=== PATIENT | female | born 1995 | race Caucasian/White ===

== ENCOUNTER 2017-02-25 17:50 | Emergency (ER) | payer OTHER ==
[2017-02-25 18:22] VITALS: BP 103/80
--- NOTE | 2017-02-25 18:38 | UC ---
Respiratory Complaint HPI - HPI Summary HPI Summary: pt presents with c/o cough and nasal congestion. Denies fever or chills. Pt states that she has a "brick" on her chest and she is coughing "all the time". Pt is sitting comfortably during exam without coughing and in No respiratory distress. - History of Current Complaint Chief Complaint: UCRespiratory Stated Complaint: UPPER RESPIRATORY Time Seen by Provider: 02/25/17 18:33 Hx Obtained From: Patient Hx Last Menstrual Period: 02/24/16 ?: No Onset/Duration: Gradual Onset, Lasting Days Timing: Intermittent Episodes Severity Initially: Mild Severity Currently: Mild Character: Cough: Nonproductive Aggravating Factors: Recumbent Position Associated Signs And Symptoms: Positive: Nasal Congestion Related History: Seasonal Allergies - Risk Factors Pulmonary Embolism Risk Factors: Negative Cardiac Risk Factors: Negative Pseudomonas Risk Factors: Negative Tuberculosis Risk Factors: Negative - Allergies/Home Medications Allergies/Adverse Reactions: Allergies Allergy/AdvReac Type Severity Reaction Status Date / Time No Known Allergies Allergy Verified 02/25/17 17:57 Home Medications: Home Medications Loratadine [Claritin 10 MG CAP] 10 mg PO PRN 02/25/17 [History] PMH/Surg Hx/FS Hx/Imm Hx Previously Healthy: Yes Endocrine History Of: Denies: Diabetes, Thyroid Disease, Hyperthyroidism, Hypothyroidism, Dyslipidemia Cardiovascular History Of: Denies: Cardiac Disorders, Hypertension, Pacemaker/ICD, Myocardial Infarction , Congestive Heart Failure, Atrial Fibrillation, Deep Vein Thrombosis, Bleeding Disorders Respiratory History Of: Denies: COPD, Asthma, Bronchitis, Pneumonia, Pulmonary Embolism GI/ History Of: Denies: Gastroesophageal Reflux, Ulcer, Gastrointestinal Bleed, Gall Bladder Disease, Kidney Stones, Diverticulitis, Renal Disease, Urosepsis Neurological History Of: Denies: TIA, CVA, Dementia, Seizures, Migraine Psychological History Of: Denies: Anxiety, Depression, Bipolar Disorder, Schizophrenia, Post Traumatic Stress Disorder - Surgical History Surgical History: Yes Surgery Procedure, Year, and Place: ear tube, annoids - Family History Known Family History: Positive: None - Social History Alcohol Use: None Substance Use Type: None Smoking Status (MU): Light Every Day Tobacco Smoker Amount Used/How Often: 6-10 CIGS PERDAY Length of Time of Smoking/Using Tobacco: 4 years Have You Smoked in the Last Year: Yes Household Exposure Type: Cigarettes - Immunization History Vaccination Up to Date: Yes Review of Systems Constitutional: Negative Skin: Negative Eyes: Negative ENT: Other - nasal congestion Respiratory: Cough Cardiovascular: Negative Gastrointestinal: Negative Genitourinary: Negative Motor: Negative Neurovascular: Negative Musculoskeletal: Negative Neurological: Negative Psychological: Negative All Other Systems Reviewed And Are Negative: Yes Physical Exam Triage Information Reviewed: Yes Appearance: Well-Appearing Vital Signs: Initial Vital Signs Temp 98.6 F 02/25/17 17:58 Pulse 110 02/25/17 17:58 Resp 20 02/25/17 17:58 BP 103/80 02/25/17 17:58 Pulse Ox 100 02/25/17 17:58 Vital Signs Reviewed: Yes Eye Exam: Normal Eyes: Positive: Conjunctiva Inflamed ENT: Positive: Nasal congestion, TM bulging - bialteral Neck exam: Normal Respiratory Exam: Normal Cardiovascular Exam: Normal Musculoskeletal Exam: Normal Neurological Exam: Normal Psychological Exam: Normal Skin Exam: Normal UC Diagnostic Evaluation - Laboratory O2 Sat by Pulse Oximetry: 100 Respiratory Course/Dx - Differential Dx/Diagnosis Differential Diagnosis/HQI/PQRI: Influenza, Other - URI Provider Diagnoses: Allergic rhinitis Discharge - Discharge Plan Condition: Stable Disposition: HOME Prescriptions: Albuterol HFA INHALER* [Ventolin HFA Inhaler*] 1 puff INH Q6H PRN #1 mdi PRN Reason: Sob/Wheezing Loratadine & Pseudoephedrine [Claritin-D 24 Hour 10-240 mg] 1 tab PO DAILY #7 tab Patient Education Materials: Allergic Rhinitis (ED), Acute Cough (ED) Referrals: Nabil Szymanski MD [Primary Care Provider] - If Needed Additional Instructions: Please follow up with your PCP or return to clinic
== END 2017-02-25 18:56 | disposition home or self-care (01) ==
LOC: UCCORT 17:50
DX: J30.9 Allergic rhinitis, unspecified (principal); F17.210 Nicotine dependence, cigarettes, uncomplicated
CPT/HCPCS: 99212; G0463

== ENCOUNTER 2017-05-05 17:48 | Emergency (ER) | payer OTHER ==
[2017-05-05 18:24] VITALS: BP 111/68
[2017-05-05] MEDS ORDERED: Penicillin VK TAB* 250 MG PO ONE (18:54)
--- NOTE | 2017-05-25 07:39 | UC ---
Throat Pain/Nasal Garcia HPI - HPI Summary HPI Summary: Patient presents with 2-3 days onset sore throat, and noted red bumps. States she is able to handle her own secretions, and is able to eat and drink. Denies fever, chills, nausea or vomiting. - History of Current Complaint Chief Complaint: UCRespiratory Stated Complaint: SORE THROAT Time Seen by Provider: 05/05/17 18:39 Hx Obtained From: Patient Hx Last Menstrual Period: 04/28/17 Onset/Duration: Gradual Onset Pain Intensity: 0 Pain Scale Used: 0-10 Numeric - Allergies/Home Medications Allergies/Adverse Reactions: Allergies Allergy/AdvReac Type Severity Reaction Status Date / Time No Known Allergies Allergy Verified 02/25/17 17:57 PMH/Surg Hx/FS Hx/Imm Hx Previously Healthy: Yes - Surgical History Surgical History: Yes Surgery Procedure, Year, and Place: ear tube, annoids - Family History Known Family History: Positive: None Negative: Hypertension - Social History Alcohol Use: None Substance Use Type: None Smoking Status (MU): Heavy Every Day Tobacco Smoker Amount Used/How Often: 1/2 PPD Length of Time of Smoking/Using Tobacco: 4 years Have You Smoked in the Last Year: Yes Household Exposure Type: Cigarettes - Immunization History Vaccination Up to Date: Yes Review of Systems Constitutional: Fatigue ENT: Sore Throat All Other Systems Reviewed And Are Negative: Yes Physical Exam Triage Information Reviewed: Yes Appearance: Ill-Appearing Vital Signs: Initial Vital Signs Temp 97.8 F 05/05/17 18:22 Pulse 90 05/05/17 18:22 Resp 18 05/05/17 18:22 BP 111/68 05/05/17 18:22 Pulse Ox 100 05/05/17 18:22 Vital Signs Reviewed: Yes Eye Exam: Normal ENT: Positive: Pharyngeal erythema Neck exam: Normal Respiratory Exam: Normal Cardiovascular Exam: Normal Skin Exam: Normal Throat Pain/Nasal Course/Dx - Course Course Of Treatment: Patient RX ABX. - Differential Dx/Diagnosis Differential Diagnosis/HQI/PQRI: Pharyngitis Provider Diagnoses: strep throat Discharge - Discharge Plan Condition: Stable Disposition: HOME Prescriptions: Penicillin VK TAB* [Penicillin VK 250 mg Tab*] 500 mg PO QID #40 tab Patient Education Materials: Strep Throat (ED) Referrals: Nabil Szymanski MD [Primary Care Provider] -
--- NOTE | 2017-05-25 07:40 | UC ---
Throat Pain/Nasal Garcia HPI - HPI Summary HPI Summary: Patient presents today with 3 day onset complaints of sore throat, red spots on the back of her throat. She states that she is able to handle her own secretions, eat and drink with minimal difficulty. She denies fever, chills, dyspnea, nause, vomiting, or diarrhea. She denies any recent travel, ill contacts. - History of Current Complaint Chief Complaint: UCRespiratory Stated Complaint: SORE THROAT Time Seen by Provider: 05/05/17 18:39 Hx Obtained From: Patient Hx Last Menstrual Period: 04/28/17 ?: No Onset/Duration: Gradual Onset Severity: Moderate Pain Intensity: 0 Pain Scale Used: 0-10 Numeric Associated Signs & Symptoms: Positive: Negative - Epiglottits Risk Factors Epiglottis Risk Factors: Negative - Allergies/Home Medications Allergies/Adverse Reactions: Allergies Allergy/AdvReac Type Severity Reaction Status Date / Time No Known Allergies Allergy Verified 02/25/17 17:57 PMH/Surg Hx/FS Hx/Imm Hx Previously Healthy: Yes - Surgical History Surgical History: Yes Surgery Procedure, Year, and Place: ear tube, annoids - Family History Known Family History: Positive: None Negative: Hypertension - Social History Alcohol Use: None Substance Use Type: None Smoking Status (MU): Heavy Every Day Tobacco Smoker Amount Used/How Often: 1/2 PPD Length of Time of Smoking/Using Tobacco: 4 years Have You Smoked in the Last Year: Yes Household Exposure Type: Cigarettes - Immunization History Vaccination Up to Date: Yes Review of Systems ENT: Sore Throat All Other Systems Reviewed And Are Negative: Yes Physical Exam Triage Information Reviewed: Yes Completion Of Physical Exam Limited Due To: Patient is uncooperative with exam Appearance: No Pain Distress, Ill-Appearing Vital Signs: Initial Vital Signs Temp 97.8 F 05/05/17 18:22 Pulse 90 05/05/17 18:22 Resp 18 05/05/17 18:22 BP 111/68 05/05/17 18:22 Pulse Ox 100 05/05/17 18:22 Vital Signs Reviewed: Yes Eye Exam: Normal ENT: Positive: Pharyngeal erythema, Tonsillar exudate Respiratory Exam: Normal Respiratory: Positive: Inspiration Skin Exam: Normal Throat Pain/Nasal Course/Dx - Course Course Of Treatment: Patient presents with 3 day onset painfyl, red sore throat findings consistent with strep throat, and was RX penvk 500mg by mouth four times daily x 10 days. She was discharged in stable condition. If for any reason her symtoms do not improve as anticipated she has been instructed to return or follow up with her PCP. - Differential Dx/Diagnosis Differential Diagnosis/HQI/PQRI: Tonsillitis Provider Diagnoses: Strep Throat Discharge - Discharge Plan Condition: Stable Disposition: HOME Prescriptions: Penicillin VK TAB* [Penicillin VK 250 mg Tab*] 500 mg PO QID #40 tab Patient Education Materials: Strep Throat (ED) Referrals: Nabil Szymanski MD [Primary Care Provider] -
== END 2017-05-05 19:00 | disposition home or self-care (01) ==
LOC: UCEAST 17:48
DX: J02.0 Streptococcal pharyngitis (principal); F17.210 Nicotine dependence, cigarettes, uncomplicated
CPT/HCPCS: 99212; G0463

== ENCOUNTER 2017-05-25 14:01 | Emergency (ER) | payer OTHER ==
[2017-05-25 14:40] VITALS: BP 105/65
[2017-05-25] MEDS ORDERED: Albuterol/Ipratropium NEB.SOL* Albuterol 2.5 MG/Ipratropium 0.5 MG 3 ML INH ONE (14:53)
--- NOTE | 2017-05-25 15:15 | RAD ---
HISTORY: Cough, wheezing COMPARISONS: None VIEWS: 2: Frontal dual-energy and lateral views of the chest. FINDINGS: CARDIOMEDIASTINAL SILHOUETTE: The cardiomediastinal silhouette is normal. IGNACIO: The ignacio are normal. PLEURA: The costophrenic angles are sharp. No pleural abnormalities are noted. LUNG PARENCHYMA: The lungs are clear. ABDOMEN: The upper abdomen is clear. There is no subphrenic gas. BONES AND SOFT TISSUES: No bone or soft tissue abnormalities are noted. OTHER: None. IMPRESSION: NO ACTIVE CARDIOPULMONARY DISEASE.
--- NOTE | 2017-05-25 16:23 | UC ---
Respiratory Complaint HPI - History of Current Complaint Chief Complaint: UCRespiratory Stated Complaint: URI Time Seen by Provider: 05/25/17 14:22 Hx Obtained From: Patient Hx Last Menstrual Period: 04/24/17 Onset/Duration: Gradual Onset, Lasting Weeks, Worse Since - last week Pain Intensity: 1 Pain Scale Used: 0-10 Numeric Character: Cough: Productive Aggravating Factors: Deep Breaths Associated Signs And Symptoms: Positive: Wheezing, URI, Nasal Congestion, Hoarseness. Negative: Fever, Calf Pain, Calf Swelling - Risk Factors Pulmonary Embolism Risk Factors: Negative Cardiac Risk Factors: Negative Pseudomonas Risk Factors: Negative Tuberculosis Risk Factors: Negative - Allergies/Home Medications Allergies/Adverse Reactions: Allergies Allergy/AdvReac Type Severity Reaction Status Date / Time No Known Allergies Allergy Verified 02/25/17 17:57 Home Medications: Home Medications Diphenhydramine HCl [Benadryl Allergy 25 MG TAB] 25 mg PO 05/25/17 [History] Fexofenadine (NF) [Diana (NF)] 60 mg PO 05/25/17 [History] PMH/Surg Hx/FS Hx/Imm Hx Previously Healthy: Yes - Surgical History Surgical History: Yes Surgery Procedure, Year, and Place: ear tube, annoids - Family History Known Family History: Positive: None Negative: Hypertension - Social History Occupation: Employed Full-time Lives: With Family Alcohol Use: Rare Substance Use Type: None Smoking Status (MU): Heavy Every Day Tobacco Smoker Type: Cigarettes Amount Used/How Often: 1/2 PPD Length of Time of Smoking/Using Tobacco: 4 years Have You Smoked in the Last Year: Yes Household Exposure Type: Cigarettes Cessation Counseling: Patient Advised to Stop - Immunization History Vaccination Up to Date: Yes Review of Systems Constitutional: Negative Skin: Negative Eyes: Negative ENT: Sore Throat, Sinus Congestion Respiratory: Cough Cardiovascular: Negative Gastrointestinal: Negative Genitourinary: Negative Motor: Negative Neurovascular: Negative Musculoskeletal: Negative Neurological: Negative Psychological: Negative All Other Systems Reviewed And Are Negative: Yes Physical Exam Triage Information Reviewed: Yes Appearance: Well-Appearing, No Pain Distress, Well-Nourished Vital Signs: Initial Vital Signs Temp 98.6 F 05/25/17 14:35 Pulse 92 05/25/17 14:35 Resp 18 05/25/17 14:35 BP 105/65 05/25/17 14:35 Pulse Ox 99 05/25/17 14:35 Vital Signs Reviewed: Yes Eye Exam: Normal ENT: Positive: Hearing grossly normal, Pharynx normal, TM dull Dental Exam: Normal Neck exam: Normal Neck: Positive: Supple, Nontender, No Lymphadenopathy Respiratory: Positive: Chest non-tender, Normal breath sounds, No respiratory distress, No accessory muscle use, Wheezing Cardiovascular Exam: Normal Cardiovascular: Positive: RRR, No Murmur, Pulses Normal Abdominal Exam: Normal Musculoskeletal Exam: Normal Musculoskeletal: Positive: Strength Intact, ROM Intact Neurological Exam: Normal Psychological Exam: Normal Skin Exam: Normal UC Diagnostic Evaluation - Laboratory O2 Sat by Pulse Oximetry: 99 Respiratory Course/Dx - Differential Dx/Diagnosis Differential Diagnosis/HQI/PQRI: Bronchitis, Sinusitis Provider Diagnoses: sinusitis; bronchitis with bronchospasm Discharge - Discharge Plan Condition: Stable Disposition: HOME Prescriptions: Azithromycin TAB* [Zithromax TAB (Z-ROSA) 250 mg #6 tabs] 250 mg PO DAILY #6 tab predniSONE TAB* [Deltasone TAB*] 10 mg PO DAILY #28 tab Patient Education Materials: Sinusitis (ED), Acute Bronchitis (ED), Bronchospasm (ED) Forms: *Work Release Referrals: Nabil Szymanski MD [Primary Care Provider] -
== END 2017-05-25 15:40 | disposition home or self-care (01) ==
LOC: UCEAST 14:01
DX: J32.9 Chronic sinusitis, unspecified (principal); J20.9 Acute bronchitis, unspecified; F17.210 Nicotine dependence, cigarettes, uncomplicated
CPT/HCPCS: 71020; 84702; 99212; A9270-GY; G0463

== ENCOUNTER 2017-08-17 19:19 | Emergency (ER) | payer OTHER ==
[2017-08-17 19:30] VITALS: BP 110/57
--- NOTE | 2017-08-17 19:36 | UC ---
Hand/Wrist HPI - HPI Summary HPI Summary: cut on left second finger while peeling potatoes 1 hour prior to arrival - History Of Current Complaint Chief Complaint: UCLaceration Stated Complaint: HAND INJURY Time Seen by Provider: 08/17/17 20:00 Hx Obtained From: Patient Hx Last Menstrual Period: 08/14/17 ?: No Mechanism Of Injury: cut with a kitchen night Onset/Duration: Sudden Onset Severity Initially: Mild Severity Currently: Mild Character Of Pain: Sharp Alleviating Factor(s): Compression Associated Signs And Symptoms: Positive: Negative Related History: Dominant Hand Right - Allergies/Home Medications Allergies/Adverse Reactions: Allergies Allergy/AdvReac Type Severity Reaction Status Date / Time Latex Allergy Rash Verified 08/17/17 19:25 PMH/Surg Hx/FS Hx/Imm Hx Previously Healthy: Yes - Surgical History Surgical History: Yes Surgery Procedure, Year, and Place: Ear Tubes; Adnoidectomy, ~2000 - Family History Known Family History: Positive: None Negative: Hypertension - Social History Occupation: Student Lives: Dormitory/Roommates Alcohol Use: Occasionally Substance Use Type: Marijuana Substance Use Comment - Amount & Last Used: "a couple times a week" Smoking Status (MU): Heavy Every Day Tobacco Smoker Type: Cigarettes Amount Used/How Often: 1/2 PPD Length of Time of Smoking/Using Tobacco: Since Age 16 Have You Smoked in the Last Year: Yes Household Exposure Type: Cigarettes - Immunization History Most Recent Influenza Vaccination: Not the 2016/2017 Season Most Recent Tetanus Shot: "I actually have no idea." Hx Tetanus, Diphtheria Vaccination: Yes - up to date for college Vaccination Up to Date: Yes Review of Systems Constitutional: Negative Skin: Other - flap laceration left 2nd finger-not bleeding Eyes: Negative ENT: Negative Respiratory: Negative Cardiovascular: Negative Gastrointestinal: Negative Genitourinary: Negative Motor: Negative Neurovascular: Negative Musculoskeletal: Negative Neurological: Negative Psychological: Negative Is Patient Immunocompromised?: No All Other Systems Reviewed And Are Negative: Yes Physical Exam Triage Information Reviewed: Yes Appearance: Well-Appearing, No Pain Distress, Well-Nourished Vital Signs: Initial Vital Signs Temp 98.4 F 08/17/17 19:24 Pulse 88 08/17/17 19:24 Resp 16 08/17/17 19:24 BP 110/57 08/17/17 19:24 Pulse Ox 98 08/17/17 19:24 Vital Signs Reviewed: Yes Eye Exam: Normal Eyes: Positive: Conjunctiva Clear ENT Exam: Normal ENT: Positive: Normal ENT inspection, Hearing grossly normal. Negative: Nasal congestion, Nasal drainage, Trismus, Muffled/hoarse voice Dental Exam: Normal Neck exam: Normal Neck: Positive: Supple, Nontender Respiratory Exam: Normal Respiratory: Positive: Chest non-tender, No respiratory distress, No accessory muscle use Cardiovascular Exam: Normal Cardiovascular: Positive: RRR, Pulses Normal, Brisk Capillary Refill Musculoskeletal Exam: Normal Musculoskeletal: Positive: Strength Intact, ROM Intact, No Edema Neurological Exam: Normal Neurological: Positive: Alert, Muscle Tone Normal Psychological Exam: Normal Skin: Positive: Other - less than 2.5 cm laceration left index finger Procedures - Laceration/Wound Repair 1 Location: Other - left second finger Description: Linear Betadine Prep?: No Irrigated w/ Saline (ccs): 250 Laceration/Wound Explored: clean Closure: Skin Adhesive Layer Closure?: No Sterile Dressing Applied?: No Hand/Wrist Course/Dx - Course Course Of Treatment: skin glue and dressing-follow with [facility] prn, - Differential Dx/Diagnosis Differential Diagnosis/HQI/PQRI: Abrasion, Other - laceration Provider Diagnoses: laceration repair, with skin glue left index finger less than 2.5 cm long Discharge - Discharge Plan Condition: Stable Disposition: HOME Patient Education Materials: Skin Adhesive Care (ED), Steristrips (ED) Forms: *Work Release Referrals: Nabil Szymanski MD [Primary Care Provider] - If Needed Additional Instructions: keep wound dry for 7 days
== END 2017-08-17 20:12 | disposition home or self-care (01) ==
LOC: UCCORT 19:19
DX: S61.211A Laceration without foreign body of left index finger without damage to nail, initial encounter (principal); W26.9XXA Contact with unspecified sharp object(s), initial encounter; Y93.G1 Activity, food preparation and clean up; Y92.9 Unspecified place or not applicable; Z91.040 Latex allergy status; F12.90 Cannabis use, unspecified, uncomplicated; F17.210 Nicotine dependence, cigarettes, uncomplicated
CPT/HCPCS: 12001; 99211; G0463

== ENCOUNTER 2017-08-27 15:29 | Emergency (ER) | payer OTHER ==
--- NOTE | 2017-08-27 15:37 | UC ---
Complaint Female HPI - HPI Summary HPI Summary: UTI sx for 3 days pain worse after urination - History Of Current Complaint Chief Complaint: UCGU Stated Complaint: UTI Time Seen by Provider: 08/27/17 15:36 Hx Obtained From: Patient Hx Last Menstrual Period: 08/14/17 ?: No Onset/Duration: Gradual Onset, Lasting Days Timing: Constant Severity Initially: Mild Severity Currently: Mild Pain Intensity: 5 Character: Burning Aggravating Factor(s): Urination Alleviating Factor(s): Nothing Associated Signs And Symptoms: Positive: Negative - Allergies/Home Medications Allergies/Adverse Reactions: Allergies Allergy/AdvReac Type Severity Reaction Status Date / Time Latex Allergy Rash Verified 08/27/17 15:32 PMH/Surg Hx/FS Hx/Imm Hx Previously Healthy: Yes - Surgical History Surgical History: Yes Surgery Procedure, Year, and Place: Ear Tubes; Adnoidectomy, ~2000 - Family History Known Family History: Positive: None Negative: Hypertension - Social History Occupation: Employed Full-time Lives: With Family Alcohol Use: Occasionally Substance Use Type: Marijuana Substance Use Comment - Amount & Last Used: "a couple times a week" Smoking Status (MU): Heavy Every Day Tobacco Smoker Type: Cigarettes Amount Used/How Often: 1/2 PPD Length of Time of Smoking/Using Tobacco: Since Age 16 Have You Smoked in the Last Year: Yes Household Exposure Type: Cigarettes - Immunization History Most Recent Influenza Vaccination: Not the 2016/2017 Season Most Recent Tetanus Shot: "I actually have no idea." Hx Tetanus, Diphtheria Vaccination: Yes - up to date for college Vaccination Up to Date: Yes Review of Systems Constitutional: Negative Skin: Negative Eyes: Negative ENT: Negative Respiratory: Negative Cardiovascular: Negative Gastrointestinal: Negative Genitourinary: Frequency, Urgency Motor: Negative Neurovascular: Negative Musculoskeletal: Negative Neurological: Negative Psychological: Negative Is Patient Immunocompromised?: No All Other Systems Reviewed And Are Negative: Yes Physical Exam Triage Information Reviewed: Yes Appearance: Well-Appearing, No Pain Distress, Well-Nourished Vital Signs: Initial Vital Signs Temp 98 F 08/27/17 15:33 Pulse 89 08/27/17 15:33 Resp 18 08/27/17 15:33 Pulse Ox 100 08/27/17 15:33 Vital Signs Reviewed: Yes Eye Exam: Normal Eyes: Positive: Conjunctiva Clear ENT Exam: Normal ENT: Positive: Normal ENT inspection, Hearing grossly normal. Negative: Nasal congestion, Nasal drainage, Trismus, Muffled/hoarse voice Neck exam: Normal Neck: Positive: Supple Respiratory Exam: Normal Respiratory: Positive: No respiratory distress, No accessory muscle use Cardiovascular Exam: Normal Abdominal Exam: Normal Bowel Sounds: Positive: Present Musculoskeletal Exam: Normal Musculoskeletal: Positive: Strength Intact, ROM Intact, No Edema Neurological Exam: Normal Neurological: Positive: Alert, Muscle Tone Normal Psychological Exam: Normal Skin Exam: Normal Diagnostics - Laboratory Diagnostic Studies Completed/Ordered: ua-+nitrites Complaint Female Dx - Course Course Of Treatment: Culture urine, MAcrobid, Azo follow with pcp prn - Differential Dx/Diagnosis Differential Diagnosis/HQI/PQRI: Pelvic Inflammatory Disease, Renal Colic, Ureteral Stone, Urinary Tract Infection Provider Diagnoses: UTI Discharge - Discharge Plan Condition: Stable Disposition: HOME Prescriptions: Nitrofurantoin Monohyd Macro [Macrobid] 100 mg PO BID #20 cap Patient Education Materials: Phenazopyridine (By mouth), Urinary Tract Infection in Women (ED) Referrals: Nabil Szymanski MD [Primary Care Provider] - If Needed
[2017-08-27 15:45] VITALS: BP 109/68
== END 2017-08-27 16:35 | disposition home or self-care (01) ==
LOC: UCEAST 15:29
DX: N39.0 Urinary tract infection, site not specified (principal); Z32.02 Encounter for pregnancy test, result negative; F12.90 Cannabis use, unspecified, uncomplicated; F17.210 Nicotine dependence, cigarettes, uncomplicated; Z91.040 Latex allergy status
CPT/HCPCS: 81003; 84702; 87077; 87086; 87186; 99212; G0463

== ENCOUNTER 2018-09-09 08:45 | Emergency (ER) | payer BC, OTHER ==
[2018-09-09 09:54] VITALS: BP 101/85
--- NOTE | 2018-09-09 10:10 | UC ---
Complaint Female HPI - HPI Summary HPI Summary: 23 yo female presents with vaginal burning and itching and pain during intercourse. She tells me that she has had BV or yeast almost every month for the past 5-6 months. She has seen OBGYN for this and told that her "nerve endings are dull to infections in her vagina", thus she does not sense when she has mild infections, but only when they get bad. Most recently over the last 2 weeks she has noticed vaginal discomfort, burning, and itching. Symptoms worse with intercourse. She has had the same partner for 4+ years. Does not use protection. Does not believe he has any STDs, but would like culture testing today. Denies fever, chills, abdominal pain, n/v/d/c, dysuria, abnormal vaginal bleeding, or flank pain. - History Of Current Complaint Chief Complaint: UCGU Stated Complaint: PERSONAL Time Seen by Provider: 09/09/18 10:10 Hx Obtained From: Patient Hx Last Menstrual Period: 08/26/18 Onset/Duration: Gradual Onset Pain Intensity: 0 - Allergies/Home Medications Allergies/Adverse Reactions: Allergies Allergy/AdvReac Type Severity Reaction Status Date / Time latex Allergy Rash Verified 09/09/18 09:49 miconazole [From Monistat 3] Allergy Blisters Verified 09/09/18 09:49 skin cleanser combination Allergy Blisters Verified 09/09/18 09:49 no.17 [From Monistat 3] Home Medications: Home Medications Norethindrone [Rebeka] 0.35 mg PO DAILY 09/09/18 [History Confirmed 09/09/18] PMH/Surg Hx/FS Hx/Imm Hx - Additional Past Medical History Additional PMH: None - Surgical History Surgical History: Yes Surgery Procedure, Year, and Place: Ear Tubes; Adnoidectomy, ~1999 - Family History Known Family History: Positive: None Negative: Hypertension - Social History Alcohol Use: Rare Substance Use Type: Marijuana Substance Use Comment - Amount & Last Used: "a couple times a week" Smoking Status (MU): Former Smoker Type: Cigarettes Amount Used/How Often: 1/4 PPD Length of Time of Smoking/Using Tobacco: 7 Years Have You Smoked in the Last Year: Yes When Did the Patient Quit Smoking/Using Tobacco: 07/20/18 Household Exposure Type: Cigarettes - Immunization History Most Recent Influenza Vaccination: none Most Recent Tetanus Shot: "I actually have no idea." Hx Tetanus, Diphtheria Vaccination: Yes - up to date for [facility] Vaccination Up to Date: Yes Review of Systems Constitutional: Negative Skin: Negative Respiratory: Negative Cardiovascular: Negative Gastrointestinal: Negative Genitourinary: Vaginal/Penile Burning, Vaginal/Penile Itching Motor: Negative Neurovascular: Negative Neurological: Negative Psychological: Negative All Other Systems Reviewed And Are Negative: Yes Physical Exam - Summary Physical Exam Summary: GENERAL: NAD. WDWN. No pain distress. SKIN: No rashes, sores, lesions, or open wounds. NECK: Supple. Nontender. No lymphadenopathy. CHEST: CTAB. No r/r/w. No accessory muscle use. Breathing comfortably and in no distress. CV: RRR. Without m/r/g. Pulses intact. Cap refill <2seconds ABDOMEN: Soft. NTTP. No distention or guarding. No CVA tenderness. Bowel sounds present NEURO: Alert. PSYCH: Age appropriate behavior. Triage Information Reviewed: Yes Vital Signs: Initial Vital Signs Temp 98.6 F 09/09/18 09:45 Pulse 68 09/09/18 09:45 Resp 16 09/09/18 09:45 BP 101/85 09/09/18 09:45 Pulse Ox 100 09/09/18 09:45 Laboratory Tests 09/09/18 10:14 POC Urine Color Yellow POC Urine Clarity Clear POC Urine pH 7.0 POC Ur Specif [place] 1.010 POC Urine Protein Negative POC Ur Glucose (UA) Negative POC Urine Ketones Negative POC Urine Blood Negative POC Urine Nitrite Negative POC Urine Bilirubin Negative POC Urine Urobilinogen 0.2 POC U Leukocyte Esteras Negative Vital Signs Reviewed: Yes Pelvic Exam: Positive: External Exam Normal, No Cerv. Motion Tender, No Masses, Discharge - Thick white moderate amount. Assisted by Sugar SWAN. Negative: Active Bleeding, Blood, Lesions, Ulcers Complaint Female Dx - Course Course Of Treatment: Suspect BV vs yeast. Cultures sent for affirm and GC/C. Discussed starting treatment now vs waiting for cultures to return. Pt elected to wait for cultures to return as she has been on many antibiotics in the past. Will call her with results. - Differential Dx/Diagnosis Provider Diagnoses: Vaginal discharge Discharge - Sign-Out/Discharge Documenting (check all that apply): Patient Departure All imaging exams completed and their final reports reviewed: No Studies - Discharge Plan Condition: Stable Disposition: HOME Patient Education Materials: Vaginal Discharge (ED) Referrals: Betsy Tanner MD [Primary Care Provider] - Additional Instructions: If you develop a fever, shortness of breath, chest pain, new or worsening symptoms - please call your PCP or go to the ED. 1) If you have not heard from our clinic in 3-4 days - please call to ask about your results - Billing Disposition and Condition Condition: STABLE Disposition: Home - Attestation Statements Provider Attestation: Chart reviewed. I was available for consult. I did not see this patient and was not involved in any disposition or treatment decisions.
== END 2018-09-09 10:45 | disposition home or self-care (01) ==
LOC: UCCORT 08:45
DX: N89.8 Other specified noninflammatory disorders of vagina (principal); Z87.891 Personal history of nicotine dependence
CPT/HCPCS: 81003; 87480; 87491; 87510; 87591; 87661; 99212; G0463

== ENCOUNTER 2019-05-13 09:02 | Emergency (ER) | payer SELFPAY ==
[2019-05-13 09:18] VITALS: BP 101/68
--- NOTE | 2019-05-13 13:39 | UC ---
Respiratory Complaint HPI - HPI Summary HPI Summary: 1 WEEK OF COUGH, CONGESTION, SORE THROAT AND EAR PAIN. STATES SHE IS FEELING INCREASINGLY WORSE. COUGH IS NONPRODUCTIVE. NO FEVER, NAUSEA/VOMITING. INITIALLY THOUGHT IT WAS ALLERGIES BUT STATES SHE HAS BEEN TAKING DAILY ALLERGY MEDICATION WITH NO RELIEF. - History of Current Complaint Chief Complaint: UCRespiratory Stated Complaint: SINUS ISSUE COUGH Time Seen by Provider: 05/13/19 10:19 Hx Obtained From: Patient Hx Last Menstrual Period: 04/22/19 Onset/Duration: Gradual Onset, Lasting Days, Still Present Timing: Constant Severity Initially: Moderate Severity Currently: Moderate Pain Intensity: 4 Pain Scale Used: 0-10 Numeric Character: Cough: Productive Aggravating Factors: Nothing Alleviating Factors: Nothing Associated Signs And Symptoms: Positive: URI, Nasal Congestion. Negative: Fever - Allergies/Home Medications Allergies/Adverse Reactions: Allergies Allergy/AdvReac Type Severity Reaction Status Date / Time latex Allergy Rash Verified 05/13/19 09:16 miconazole [From Monistat 3] Allergy Blisters Verified 05/13/19 09:16 skin cleanser combination Allergy Blisters Verified 05/13/19 09:16 no.17 [From Monistat 3] PMH/Surg Hx/FS Hx/Imm Hx - Additional Past Medical History Additional PMH: ALLERGIES - Surgical History Surgical History: Yes Surgery Procedure, Year, and Place: Ear Tubes; Adnoidectomy, ~1999 - Family History Known Family History: Positive: None Negative: Hypertension - Social History Alcohol Use: Rare Substance Use Type: Marijuana Substance Use Comment - Amount & Last Used: "a couple times a week" Smoking Status (MU): Former Smoker Type: Cigarettes Amount Used/How Often: 1/4 PPD Length of Time of Smoking/Using Tobacco: 7 Years Have You Smoked in the Last Year: Yes When Did the Patient Quit Smoking/Using Tobacco: 07/20/18 Household Exposure Type: Cigarettes - Immunization History Most Recent Influenza Vaccination: none Most Recent Tetanus Shot: "I actually have no idea." Hx Tetanus, Diphtheria Vaccination: Yes - up to date for college Vaccination Up to Date: Yes Review of Systems All Other Systems Reviewed And Are Negative: Yes Constitutional: Positive: Negative ENT: Positive: Sore Throat, Ear Ache, Nasal Discharge Respiratory: Positive: Cough Cardiovascular: Positive: Negative Gastrointestinal: Positive: Negative Physical Exam Triage Information Reviewed: Yes Appearance: Well-Appearing, No Pain Distress, Well-Nourished Vital Signs: Initial Vital Signs Temp 98.8 F 05/13/19 09:13 Pulse 88 05/13/19 09:13 Resp 18 05/13/19 09:13 BP 101/68 05/13/19 09:13 Pulse Ox 100 05/13/19 09:13 Vital Signs Reviewed: Yes Eyes: Positive: Conjunctiva Clear ENT: Positive: Hearing grossly normal, Pharynx normal, TMs normal Neck: Positive: Supple, Nontender, No Lymphadenopathy Respiratory: Positive: No respiratory distress, No accessory muscle use, Other: - OCCASIONAL COARSE BREATH SOUND Cardiovascular Exam: Normal Abdomen Description: Positive: Soft Musculoskeletal: Positive: No Edema Neurological: Positive: Alert Psychological: Positive: Age Appropriate Behavior Skin: Negative: Rashes Respiratory Course/Dx - Differential Dx/Diagnosis Provider Diagnosis: Acute bronchitis Discharge - Sign-Out/Discharge Documenting (check all that apply): Patient Departure All imaging exams completed and their final reports reviewed: No Studies - Discharge Plan Condition: Stable Disposition: HOME Prescriptions: Azithromycin 500 mg PO DAILY #5 tab Fluticasone NASAL SPRAY 50MCG* [Flonase NASAL SPRAY 50MCG*] 2 spray BOTH NARES DAILY #1 btl predniSONE TAB* [Deltasone 20 MG TAB*] 40 mg PO DAILY #10 tab Patient Education Materials: Acute Bronchitis (ED) Referrals: Betsy Tanner MD [Primary Care Provider] - If Needed Additional Instructions: YOUR SYMPTOMS MAY BE VIRALLY/ALLERGICALLY MEDIATED. NO INDICATION FOR ANTIBIOTICS AT PRESENT. REST, HYDRATE, OTC MEDS NEEDED. WILL TREAT WITH PREDNISONE TO HELP WITH AIRWAY INFLAMMATION. FLONASE NASAL SPRAY FOR CONGESTION. TAKE AN OTC ANTIHISTAMINE SUCH CLARITIN OR ZYRTEC DAILY. IF YOU ARE NOT IMPROVING WITH THIS TREATMENT BY THURSDAY GO AHEAD AND START THE ANTIBIOTIC. BE AWARE THAT TAKING THE ANTIBIOTIC AT THE SAME TIME YOUR CONTROL PILL CAN DECREASE THE CONTRACEPTIVE EFFICACY. USE BACKUP METHODS OF CONTROL FOR THE REMAINDER OF THIS CYCLE AND YOUR NEXT CYCLE. - Billing Disposition and Condition Condition: STABLE Disposition: Home
== END 2019-05-13 10:56 | disposition home or self-care (01) ==
LOC: UCEAST 09:02
DX: J20.9 Acute bronchitis, unspecified (principal); Z87.891 Personal history of nicotine dependence; Z91.040 Latex allergy status
CPT/HCPCS: 99212; G0463